=== PATIENT | female | born 2005 | race Hispanic/Latino ===

== ENCOUNTER 2025-05-21 20:50 | Emergency (ER) | payer OTHER ==
[~2025-05-21] VITALS: Ht 152.4 cm; Wt 63.5 kg
--- NOTE | 2025-05-21 21:35 | ERN ---
ED Note History of Present Illness Stated Complaint: FEVER Chief Complaint: Fever Time Seen by MD: 20:52 Time Seen by Midlevel: 20:52 Dictation: The patient is a 20-year-old female with a history of appendectomy, cholecystectomy who presents to the emergency department with complaints of body aches, fever, dry cough, runny nose onset last night. Patient reports that her son tested positive for influenza a yesterday. Allergies: Coded Allergies: No Known Allergies (Unverified Allergy, Unknown, 05/21/25) Past Medical History Past Medical History: No Pertinent History Surgical History: Appendectomy, Cholecystectomy RN Note Reviewed/Agreed w/PFSH: Yes Review of System Dictation Constitutional: Negative for weight loss positive for fever, chills Eyes: Negative for injury, pain,redness, and discharge ENT: Negative for injury,pain or swelling positive for sore throat, nasal congestion Cardiovascular: Negative for chest pain, palpitations, and edema Respiratory: Negative for shortness of breath, and wheezing, positive for cough Abdomen/GI: Negative for abdominal pain, nausea, vomiting, diarrhea, and constipation Back: Negative for injury and pain : Negative for injury, bleeding and discharge MS/Extremity: Negative for injury and deformity Skin: Negative for rash, and discoloration Neuro: Negative for headache, weakness, numbness, tingling, and seizure Psych: Negative for suicide ideation, homicidal ideation, and hallucinations Initial Vital Sign VS Vital Signs Date Time Temp Pulse Resp B/P (MAP) Pulse Ox O2 Delivery O2 Flow Rate FiO2 05/21/25 20:51 98.8 100 20 119/55 99 Room Air Physical Exam Dictation Vital Signs reviewed General Appearance: Alert, oriented x 3, no acute distress, well developed, nourished. Head and Face: non-traumatic. Eyes: PERRL, pink conjunctivas, eyelid no trauma, anterior chamber with arcus senilis. Ears: Pinnas intact and no signs of trauma or erythema ear canals clear and no discharge TM no erythema Nose: No discharge, no bleeding. Oropharynx: Mouth normal, tongue pink. pharynx clear,no erythema, tonsils no exudates, no abscesses noted, mucous membrane moist Neck: Supple, non-tender, no thyromegaly, no masses, no JVD, no bruits Breast:Deferred Chest:No tenderness, no crepitus, no paradoxical movement, no retractions Lungs:Clear, well-ventilated, symmetric, no rales, no wheezing, no rhonchi, no stridor, good breath sounds bilaterally Heart: Regular rate, regular rhythm, no murmur, no gallops Vascular: no peripheral edema, Abdomen: Soft, positive bowel sounds, nondistended, no guarding, nontender, no rebound, no masses no hepatomegaly, no splenomegaly, no Denise's sign, no hernias. Rectal: Deferred Genital: Deferred Neurological: Normal speech, motor function intact, sensory function intact Musculoskeletal: Neck nontender, full range of motion, back nontender, full range of motion, Extremities: nontender, full range of motion Skin: Color pink, dry, no turgor, no rash, no lacerations, no abrasions, no contusions. Lymphatic: Deferred Results (Laboratory/Radiology) Laboratory/Radiology Laboratory Tests Test 05/21/25 22:09 Influenza Type A Antigen Negative For Type A Influenza Type B Antigen Negative For Type B SARS-CoV-2 Antigen (Rapid) PRESUMPTIVE NEGATIVE Group A Streptococcus Rapid negative (NEGATIVE) Labs Reviewed?: Yes ED Course ED Course Orders Procedure Category Date Status Time Covid19 (Sars Antigen LAB 05/21/25 Complete Rapid) 21:08 Influenza Type A & B, LAB 05/21/25 Complete Rapid 21:08 Rapid (Group A Strep) LAB 05/21/25 Complete 21:08 Guaifenesin-Codeine PHA 05/21/25 Complete Syrup 5ml (Robitussi 21:30 Current Medications Medications (Trade) Dose Ordered Sig/Adama Route PRN Reason Start Time Stop Time Status Last Admin Dose Admin Guaifenesin/ Codeine Phosphate (RobiTUSSin AC 5 ML SYRUP) 10 ml ONCE ONCE PO 05/21/25 21:30 05/21/25 21:31 DC 05/21/25 22:50 Vital Signs Date Time Temp Pulse Resp B/P (MAP) Pulse Ox O2 Delivery O2 Flow Rate FiO2 05/21/25 20:51 98.8 100 20 119/55 99 Room Air Medical Decision Making MDM The patient is a 20-year-old female with a history of appendectomy, cholecystectomy who presents to the emergency department with complaints of body aches, fever, dry cough, runny nose onset last night. Patient reports that her son tested positive for influenza a yesterday. Serology was negative. Patient has symptoms consistent with a an upper respiratory infection. Patient otherwise in no acute distress, clear lung sounds, stable vital signs. Patient will be discharged to follow up with PCP. Differential diagnosis: Influenza a, COVID-19 infection, strep Need for hospitalization: Patient does not meet criteria for hospitalization. There are no social concerns with this patient. DX & DISP Disposition: Discharge Departure Impression: Primary Impression: Viral URI with cough Condition: Stable Additional Instructions: Your labs were negative but your symptoms are so consistent with a an upper respiratory infection. Please take Tylenol as needed for fevers, continue oral hydration at home. Follow up with the primary doctor in 1-2 days. If anything worsens please return to ER. FOLLOW-UP WITH PRIMARY CARE PROVIDER IN 1 TO 2 DAYS. TAKE MEDICATIONS DIRECTED HERE IN THE EMERGENCY ROOM. OKAY TO CONTINUE HOME MEDICATIONS UNLESS OTHERWISE DISCUSSED DURING YOUR VISIT IN THE EMERGENCY ROOM TODAY. RETURN TO YOUR NEAREST EMERGENCY ROOM IF SYMPTOMS WORSEN OR IF THERE IS NO IMPROVEMENT. CALL 911 IF YOU NEED IMMEDIATE ASSISTANCE. TAKE TYLENOL [id number] NEEDED AND IF NO CONTRAINDICATIONS ARE PRESENT. INCREASE ORAL HYDRATION. A WOUND CULTURE OR URINE CULTURE WAS ORDERED HERE IN THE EMERGENCY ROOM DEPARTMENT PLEASE FOLLOW-UP WITH PRIMARY CARE PROVIDER AND ADVISE THEM TO GET REPEAT PORTS FROM OUR FACILITY. IF YOU HAD ANY [place] WRAP/SPLINTS THAT WERE APPLIED HERE, PLEASE DO NOT REMOVE THEM UNTIL YOU SEE YOUR PRIMARY CARE OR SPECIALTY. Referrals: SELF,REFERRAL (PCP) Time of Disposition: 23:35 I have reviewed the case, and I agree with, Diagnosis and Plan YARI GUZMÁN May 21, 2025 21:35
--- NOTE | 2025-05-21 22:09 | NUR ---
COVID, FLU AND COVID SWABS COLLECTED AND SENT
[2025-05-21 23:08] LABS: RAPID GROUP A STREP negative (NEGATIVE)
[2025-05-21 23:13] LABS: INFLUENZA TYPE A Negative For Type A (NEGATIVE); INFLUENZA TYPE B Negative For Type B (NEGATIVE)
[2025-05-21 23:14] LABS: COVID19 (SARS ANTIGEN RAPID) PRESUMPTIVE NEGATIVE (NEGATIVE)
[2025-05-21 23:57] VITALS: BP 118/66; PULSE 99; RESP 19; TEMP 98.7; O2SAT 99
== END 2025-05-22 | disposition home or self-care (01) ==
LOC: EDH 20:50
DX: J06.9 Acute upper respiratory infection, unspecified (principal); Z90.49 Acquired absence of other specified parts of digestive tract; Z20.822 Contact with and (suspected) exposure to COVID-19
CPT/HCPCS: 87426; 87804; 87880; 99283